=== PATIENT | female | born 1960 | race Caucasian/White ===

== ENCOUNTER 2016-04-30 09:42 | Inpatient (IN) | payer BC ==
--- NOTE | ~2016-04-30 | DS ---
Discharge Summary [facility] [address] [place]. [address] NAME: JUAN J DRAPER : 58 STATUS : DIS IN PAT#: [id number] AGE: 56 ADM/REG DATE : 04/30/16 MR#: [id number] REPORT SERV DATE: 05/01/16 DICTATED BY: NANO BARONE DATE: 05/01/16 REPORT STATUS : Draft TRANSCRIBED BY: MODL DATE: 05/01/16 ADMISSION DATE: 04/30/2016 DISCHARGE DATE: 05/01/2016 CHIEF COMPLAINT: Pain and redness of the left breast. DISCHARGING DIAGNOSES: 1. 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 2. Breast cancer. Follows with Dr. Soto as an outpatient. 3. Constipation due to chemotherapy. 4. Anemia and thrombocytopenia. No transfusion is needed. HISTORY OF PRESENT ILLNESS: Please see full H and P for details regarding initial presentation. HOSPITAL COURSE: 1. Strep infection of the left breast status post I and D. The patient had outpatient cultures growing Strep. She was started on amoxicillin prior to admission. She did have an I and D yesterday with Dr. Best. Cultures from that are pending. Per Infectious Disease conversation I had with Dr. Castle, it was recommended to continue oxacillin as an outpatient. Dr. Best did add Bactrim and he will follow her up in the office and followup those cultures. 2. In regard to pain control, she was given Tylenol No. 3. 3. Breast cancer. Follow up with Dr. Soto as scheduled. She did get chemo this past week. Follow up per Dr. Soto's recommendations. 4. Constipation. She was given MiraLAX. The patient has outpatient regimen that she can continue to monitor. 5. Anemia and thrombocytopenia. At the time of discharge, her white blood cell count is 4.9, hemoglobin 9.3, and platelet count of 134. No transfusions were given. DISPOSITION: Home with family. Time spent on discharge including discussion with the patient, the patient's , and nursing is greater than 30 minutes. ALANK/VICTORINO Nano Barone MD / [id number] CC: Tommy Best M.D.
--- NOTE | ~2016-04-30 | OP ---
Record Of Operation [facility] [address] [place]. 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 POSTOPERATIVE DIAGNOSIS: Infected left tissue lead technologist in cytogenetics. PROCEDURE: Incision and drainage of infected left tissue lead technologist in cytogenetics. INDICATIONS AND FINDINGS OF THE PROCEDURE: This 56-year-old female is status post a tissue expansion reconstruction many weeks ago. She has started in chemotherapy and has developed a late barron-implant infection. Aspirated about 72 hours prior to her operative intervention. Aspiration was positive for gram-positive species in pairs. She is now appropriate for a formal operative incision and drainage. DETAILS OF THE PROCEDURE: The patient was brought to the operating room. After adequate sedation was achieved, she was prepped and draped in the usual sterile fashion for the above described procedure. 100 mL was then removed from her tissue lead technologist in cytogenetics. A 2 cm incision was made laterally and the dissection was carried down to the level of the implant through her ADM using Bovie cautery. Turbid seroma was identified; this was re-cultured. She was then thoroughly irrigated with about a liter of dilute Hibiclens solution. With this completed, an inferior drain was placed. The area was closed deeply and she was then irrigated again through the drain with about 50 mL of Hibiclens. This was allowed to stay in place for 15 minutes. Closure then ensued with multiple layers of 3-0 Monocryl through to an intracuticular in the skin. She was cleansed with peroxide, dressed, and remanded to the recovery room in stable condition. All sponge and needle counts were correct. LEONA/VICTORINO Meme Best M.D. / [id number] CC: Meme Best M.D.
--- NOTE | ~2016-04-30 | HP ---
History And Physical [facility] [id number] [place]. [address] NAME: JUAN J CHOW : 58 STATUS : ADM IN [facility]#: [id number] AGE: 56 ADM/REG DATE : 04/30/16 MR#: [id number] REPORT SERV DATE: 04/30/16 DICTATED BY: NANO BIRD DATE: 04/30/16 REPORT STATUS : Draft TRANSCRIBED BY: VICTORINO DATE: 04/30/16 DATE OF ADMISSION: 04/30/2016 CHIEF COMPLAINT: Pain and swelling of the left breast. HISTORY OF PRESENT ILLNESS: This is a 56-year-old female who has known breast cancer and follows with Dr. Orly Soto. She had a left tissue locomotive electrician placed 02/10/[address] Best, recovered well. She is status post her 3rd round of chemo on the 26 of April. The day prior to that, she had noticed some tenderness in that left breast. Over the subsequent day, she noted some redness. She was started on Bactrim initially, then cultures done in the office by Dr. Best which included a needle aspiration are growing Strep, however, final cultures are still pending and yesterday she was changed to amoxicillin. She continued to not improve and was directly admitted today and Dr. Best plans to take her to the OR. Ms. Chow denies any fevers at home although she says she does not have a thermometer. She says that she has had some discomfort although not taking anything significant for pain. She states her worst chemotherapy side effects are constipation. She also just feels weak. She had not had any drainage from the surgical incision under her left breast. REVIEW OF SYSTEMS: A full review of systems has been obtained and is negative with the exception of above HPI. PAST MEDICAL HISTORY: Includes breast cancer. ALLERGIES: NO KNOWN DRUG ALLERGIES. HOME MEDICATIONS: Include amoxicillin started yesterday, previously to that Bactrim; biotin 2500 mcg daily; Decadron prior to chemo; docusate p.r.n.; Percocet p.r.n.; allergy eyedrops; she received Taxotere and carboplatin 4 days ago; and she also takes zinc over the counter. SOCIAL HISTORY: She is . 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 Never smoker. Occasionally drinks. FAMILY HISTORY: Her mother did have breast cancer. Father had prostate cancer. PHYSICAL EXAMINATION: VITAL SIGNS: Temperature 99.2, pulse 102, blood pressure 95/56, and saturating 96%, currently on 2 L. Weight 60.86 kg. GENERAL: This is a well-developed, well-nourished female, who is in no acute distress. She is sitting up in bed. Alert and oriented x3. She is cooperative. HEENT: Extraocular muscles are intact. Sclerae are anicteric. Mucous membranes are moist. NECK: Supple. LUNGS: Clear to auscultation bilaterally without any wheezes, rales, or rhonchi. She has normal respiratory effort and symmetric expansion. CARDIAC: Mildly tachycardic. Regular rate and rhythm. CHEST: Reveals an erythematous tender left breast with no obvious open sores or wounds. No drainage. Her surgical incision under her left breast appeals to be healing well without History And Physical [address] [address] NAME: JUAN J CHOW : 58 STATUS : ADM IN [facility]#: [id number] AGE: 56 ADM/REG DATE : 04/30/16 MR#: [id number] REPORT SERV DATE: 04/30/16 DICTATED BY: NANO BIRD DATE: 04/30/16 REPORT STATUS : Draft TRANSCRIBED BY: VICTORINO DATE: 04/30/16 obvious drainage. It is warm to touch. ABDOMEN: Soft, nontender, and nondistended. EXTREMITIES: Warm, well perfused with no edema. SKIN: Warm, dry, and intact without rashes with the exception of the above-mentioned left breast. NEUROLOGIC: Cranial nerves 2 through 12 are grossly intact. Face is symmetric. Tongue is midline. Speech is fluent. PSYCHIATRIC: The patient is cooperative and appropriate. LABORATORY DATA: From the office on the , her creatinine was 1, otherwise, we have no other labs from that visit. Labs from today are pending. ASSESSMENT AND PLAN: This is a 56-year-old female with stage 1B left breast cancer who follows, she is ER positive, HER-2 equivocal status post left mastectomy in January 2016, status post left breast locomotive electrician by Dr. Best. She is status post cycle 3 on April 26. She subsequently developed what is likely a postop infection of the left breast. PROBLEMS: 1. Left breast infection with cultures growing strep. I reviewed this with Dr. Castle from Infectious Disease and Dr. Best's nurse. We are waiting for final cultures at this point. We will start her on IV ampicillin and await additional surgical cultures and input from Dr. Best after OR today. We will have pain control as a priority postop. 2. Breast cancer, status post chemo April 26. We will check counts. The patient did get Neulasta. Blood work pending at this time. 3. Post chemo nausea and fatigue. She will have p.r.n. antiemetics available. DVT prophylaxis, we will hold at this time as the patient is going to the OR today. Code status is full. DNK/MODL Nano Bird MD / [id number] CC: Tommy Best M.D.
[~2016-04-30 09:42] MED LIST: ADVIL PO; AT25 PO; K500 PO; PERCOCET1 TA2 PO; T PO
[2016-04-30] MEDS ORDERED: AMOXIL500 MG PO (11:03)
[2016-04-30] MEDS ORDERED: DEX4 PO (11:04)
[2016-04-30] MEDS ORDERED: ALLERGY EYE DROPS OPH (11:04)
[2016-04-30] MEDS ORDERED: CHEMOTHERAPY IV (11:05)
[2016-04-30] MEDS ORDERED: BIOTIN5 MG PO (11:05)
[2016-04-30] MEDS ORDERED: ZINC OTC PO (11:06)
[2016-04-30] MEDS ORDERED: D.O.S.100 MG PO (11:06)
[2016-04-30] MEDS ORDERED: PERCOCET 7.5/321 TAB PO (11:07)
[2016-04-30 11:53] LABS: MEAN CORPUS HGB CONC 32.1 g/dL (32.0-36.0); MEAN CORPUSCULAR HEMOGLOB 30.2 pg (26.0-34.0); MEAN PLATELET VOLUME 10.1 fL (9.2-13.0)
[2016-04-30 11:59] LABS: INTERNATIONAL NORMAL RATI 1.2 UNITS (-); PARTIAL THROMBO TIME 27.2 SEC (22.5-37.2); PROTIME (NOT ORD) 15.2 SEC (12.0-14.5)
[2016-04-30 12:05] LABS: BUN (BLOOD UREA NITROGEN) 15 MG/DL (6-23); CALCIUM, SERUM 8.6 MG/DL (8.5-10.4); CHLORIDE, SERUM 102 MMOL/L (96-112); CO2 (CARBON DIOXIDE) 27 MMOL/L (24-34); CREATININE 0.61 MG/DL (0.55-1.02); GFR AFRICAN AMERICAN 117 ML/MIN (>=60); GFR NON AFRICAN AMERICAN 101 ML/MIN (>=60); GLUCOSE, SERUM 97 MG/DL (60-99); PHOSPHORUS, SERUM 3.8 MG/DL (2.5-4.5); POTASSIUM, SERUM 4.2 MMOL/L (3.5-5.3); SGOT(AST) 14 U/L (5-40); SGPT(ALT) 42 U/L (5-65); SODIUM, SERUM 137 MMOL/L (135-148); TOTAL PROTEIN 5.9 G/DL (6.0-8.5)
[2016-04-30 12:06] LABS: HEMATOCRIT 29.6 % (36.0-48.0); HEMOGLOBIN 9.5 g/dL (12.0-16.0); MANUAL DIFF YES %; PLATELET COUNT 145 10/3/uL (150-400); RBC DISTRIBUTION WIDTH 15.4 % (12.0-16.0); RED CELL COUNT 3.15 10/6/uL (4.0-5.6); WHITE BLOOD CELLS 10.3 10/3/uL (4.5-10.5)
[2016-04-30 12:07] LABS: A/G RATIO 0.9 (0.7-1.9); ALBUMIN 2.8 G/DL (3.5-5.0); ALKALINE PHOSPHATASE 87 U/L (45-117); GLOBULIN 3.1 G/DL (2.5-4.1)
[2016-04-30 12:20] LABS: BAND NEUTROPHILS 2 %; IMMATURE GRANS ABSOLUTE (CALC) 0.62 10/3/uL (0.0-0.11); LYMPHOCYTES 10 %; LYMPHOCYTES ABSOLUTE (CALC) 1.03 10/3/uL (0.67-4.30); METAMYELOCYTES 3 %; MYELOCYTES 3 %; NEUTROPHILS ABSOLUTE (CALC) 8.65 10/3/uL (2.02-8.40); SEGMENTED NEUTROPHIL (0) 82 %; TOTAL NUCLEATED CELLS 100
[2016-04-30 12:21] LABS: PLATELET ESTIMATE SLT DEC (ADEQUATE); TEARDROP SHAPED RBCS OCC (0-2/OIF)
[2016-04-30 12:22] LABS: POIKILOCYTOSIS 1+ (5-10/OIF) (0-5/OIF); VACUOLATED NEUTROPHILES RARE
[2016-04-30 12:56] LABS: PROCALCITONIN 0.16 ng/mL (<0.5)
[2016-05-01 07:00] LABS: HEMATOCRIT 28.3 % (36.0-48.0); HEMOGLOBIN 9.3 g/dL (12.0-16.0); MEAN CORPUS HGB CONC 32.9 g/dL (32.0-36.0); MEAN CORPUSCULAR HEMOGLOB 31.2 pg (26.0-34.0); MEAN PLATELET VOLUME 10.8 fL (9.2-13.0); PLATELET COUNT 134 10/3/uL (150-400); RBC DISTRIBUTION WIDTH 15.2 % (12.0-16.0); RED CELL COUNT 2.98 10/6/uL (4.0-5.6)
[2016-05-01 07:18] LABS: MANUAL DIFF YES %; WHITE BLOOD CELLS 4.9 10/3/uL (4.5-10.5)
[2016-05-01 07:29] LABS: BAND NEUTROPHILS 11 %; EOSINOPHILS 1 %; EOSINOPHILS ABSOLUTE (CALC) 0.05 10/3/uL (0.0-0.53); IMMATURE GRANS ABSOLUTE (CALC) 0.05 10/3/uL (0.0-0.11); LYMPHOCYTES 18 %; LYMPHOCYTES ABSOLUTE (CALC) 0.88 10/3/uL (0.67-4.30); METAMYELOCYTES 1 %; MONOCYTES 1 %; MONOCYTES ABSOLUTE (CALC) 0.05 10/3/uL (0.21-1.20); NEUTROPHILS ABSOLUTE (CALC) 3.87 10/3/uL (2.02-8.40); PLATELET ESTIMATE SLT DEC (ADEQUATE); RBC MORPHOLOGY NORM (NORMAL); SEGMENTED NEUTROPHIL (0) 68 %; TOTAL NUCLEATED CELLS 100
[2016-05-01] MEDS ORDERED: T3 PO (14:39)
[2016-05-01] MEDS ORDERED: BACTRIM DS1 TAB PO (14:39)
[2016-05-01] MEDS ORDERED: MIRALAX POWDER1 PKT PO (14:41)
[2016-08-25] MEDS ORDERED: TAMOXIFEN20 M1 PO (17:42)
[2016-08-25] MEDS ORDERED: HERCEPTIN440 MG IV (17:43)
[2016-08-25] MEDS ORDERED: ACET500CAP PO (17:44)
[2016-08-28] MEDS ORDERED: MOMUD PO (14:39)
[2016-08-28] MEDS ORDERED: ALEVE220 MG PO (14:40)
[2016-08-28] MEDS ORDERED: AT25 PO (14:42)
[2016-08-28] MEDS ORDERED: K500 PO (14:42)
== END 2016-05-01 15:00 | disposition home or self-care (01) | DRG 921 ==
LOC: 4EA 09:42
PROVIDERS: Internal Medicine; Surgery Surgery of the Hand
PROC: 0H9U00Z Drainage of Left Breast with Drainage Device, Open Approach (ICD-10-PCS; principal; 2016-04-30 14:15)
DX: T85.79XA Infection and inflammatory reaction due to other internal prosthetic devices, implants and grafts, initial encounter (principal); C50.919 Malignant neoplasm of unspecified site of unspecified female breast; K59.09 Other constipation; D64.9 Anemia, unspecified
CPT/HCPCS: 36415; 80053; 83735; 84100; 84145; 85025; 85610; 85730; 86850; 86900; 86901; 87015; 87040; 87070; 87075; 87077; 87102; 87116; 87186; 87205; A9270-GY; J0290; J2250; J2405; J3010

== ENCOUNTER 2016-05-17 14:25 | Day surgery (SDC) | payer BC ==
--- NOTE | ~2016-05-17 | OP ---
Record Of Operation [facility] [address] [place]. [address] NAME: JUAN J DRAPER : 58 STATUS : [facility]#: [id number] AGE: 56 ADM/REG DATE : 05/17/16 MR#: [id number] REPORT SERV DATE: 05/19/16 DICTATED BY: MEME BEST DATE: 05/19/16 REPORT STATUS : Draft TRANSCRIBED BY: VICTORINO DATE: 05/19/16 DATE OF PROCEDURE: 05/17/2016 PREOPERATIVE DIAGNOSIS: Surgical absence of the left breast with tissue boiler plant worker breast reconstruction infection. POSTOPERATIVE DIAGNOSIS: Surgical absence of the left breast with tissue boiler plant worker breast reconstruction infection. PROCEDURE: Removal of tissue boiler plant worker and acellular dermal matrix. INDICATIONS AND FINDINGS OF THE PROCEDURE: This middle-aged female is status post tissue expansion reconstruction which was without issue until the start of chemotherapy. With the start of chemotherapy, she did begin to develop infection around the implant. She has had a washout in the past; however, has not solved the issue. She is now appropriate for removal of the implant in her acellular dermal matrix. DESCRIPTION OF PROCEDURE: The patient was brought to the operative room, and after adequate sedation was achieved, she was prepped and draped in the usual sterile fashion for the above described procedure. Incision was then made in her former mastectomy closure, dissection was carried down first through the acellular dermal matrix, which was noted to be relatively adherent. A pocket of purulent drainage was encountered. This was cultured and the implant was removed. She was then thoroughly debrided of all internal granulation tissue. The acellular dermal matrix was then from the soft tissue envelope and removed intact. She was then treated with multiple inlays of peroxide, and Hibiclens, and inferior 15-Mauritanian drain was placed. She was then closed with a deep layer of 3-0 Monocryl and then multiple layers of Monocryl through to an intracuticular in the skin. She was subsequently cleansed with peroxide. A dry dressing was placed, and she was remanded to the recovery room in stable condition. All sponge and needle counts were correct. LEONA/VICTORINO Meme Best M.D. / [id number] CC: Richard Ferrell M.D.
[~2016-05-17 14:25] MED LIST changes: +ALLERGY EYE DROPS OPH; +AMOXIL500 MG PO; +BACTRIM DS1 TAB PO; +BIOTIN5 MG PO; +CHEMOTHERAPY IV; +D.O.S.100 MG PO; +DEX4 PO; +MIRALAX POWDER1 PKT PO; +PERCOCET 7.5/321 TAB PO; +T3 PO; +ZINC OTC PO
[2016-08-25] MEDS ORDERED: TAMOXIFEN20 M1 PO (17:42)
[2016-08-25] MEDS ORDERED: HERCEPTIN440 MG IV (17:43)
[2016-08-25] MEDS ORDERED: ACET500CAP PO (17:44)
[2016-08-28] MEDS ORDERED: MOMUD PO (14:39)
[2016-08-28] MEDS ORDERED: ALEVE220 MG PO (14:40)
[2016-08-28] MEDS ORDERED: AT25 PO (14:42)
[2016-08-28] MEDS ORDERED: K500 PO (14:42)
== END 2016-05-17 18:49 | disposition home or self-care (01) ==
LOC: SDC 14:25
PROVIDERS: Surgery Surgery of the Hand
PROC: 0HPU0NZ Removal of Tissue Expander from Left Breast, Open Approach (ICD-10-PCS; principal; 2016-05-17 15:45)
DX: T85.79XA Infection and inflammatory reaction due to other internal prosthetic devices, implants and grafts, initial encounter (principal); Z79.2 Long term (current) use of antibiotics; Z79.899 Other long term (current) drug therapy
CPT/HCPCS: 71010; 87015; 87070; 87075; 87102; 87116; 87205; 88305; J1885; J2250; J2405; J3010